=== PATIENT | male | born 1995 | race African-American/Black ===

== ENCOUNTER 2017-05-04 17:38 | Inpatient (IN) | payer OTHER, MEDICAID ==
[~2017-05-04] VITALS: Ht 175.3 cm; Wt 61.2 kg
[2017-05-04] MEDS ORDERED: ZOLPIDEM TARTRATE 10 MG TABLET PO PRN (21:15)
[2017-05-04] MEDS ORDERED: ALBU8HFA IH (21:15)
[2017-05-04 21:25] VITALS: BP 138/81
[2017-05-04 21:38] VITALS: BP 144/88
[2017-05-04] MEDS ORDERED: PNEUMOCOCCAL VACCINE POLYVALENT 0.5 ML VIAL [PPSV23] IM ONE (22:15)
[2017-05-04] MEDS: LORazepam 2 MG TABLET PO PRN (22:16)
[2017-05-05 06:47] VITALS: BP 134/88
[2017-05-05 07:19] LABS: BASOPHILS % (AUTO) 0.6 % (0.0-2.0); EOSINOPHILS % (AUTO) 2.4 % (1.0-6.0); HEMATOCRIT 46.1 % (41-53); HEMOGLOBIN 15.7 g/dL (13.5-17.5); LYMPHOCYTES # (AUTO) 2.4 K/uL (1.0-4.8); LYMPHOCYTES % (AUTO) 36.6 % (22.0-44.0); MEAN CORPUSCULAR HEMOGLOBIN 31.5 pg (26.0-34.0); MEAN CORPUSCULAR VOLUME 93 fL (80-100); MONOCYTES # (AUTO) 0.5 K/uL (0.1-1.0); MONOCYTES % (AUTO) 7.5 % (2.0-9.0); NEUTROPHILS # (AUTO) 3.4 K/uL (1.8-7.7); NEUTROPHILS % (AUTO) 52.9 % (40.0-70.0); PLATELET COUNT (AUTO) 203 K/uL (150-450); RED BLOOD CELL COUNT(AUTO) 4.98 MIL/uL (4.50-5.90); RED CELL DISTRIBUTION WIDTH 13.8 % (11.5-14.5)
[2017-05-05 07:55] LABS: ALANINE AMINOTRANSFERASE 25 U/L (12-78); ALBUMIN 4.3 g/dL (3.4-5.0); ALKALINE PHOSPHATASE 87 U/L (46-116); ANION GAP 11 mmol/L (8-16); ASPARTATE AMINOTRANSFERASE 33 U/L (15-37); BILIRUBIN,TOTAL 0.7 mg/dL (0.1-1.0); CALCIUM, TOTAL 9.5 mg/dL (8.8-10.5); CARBON DIOXIDE 26 mmol/L (22-29); CHLORIDE 103 mmol/L (98-107); CREATININE 0.97 mg/dL (0.60-1.30); GLOMERULAR FILTR. RATE CALC > 60 mL/min (>60); GLUCOSE,RANDOM 87 mg/dL (70-110); POTASSIUM 3.9 mmol/L (3.5-5.1); SODIUM SERUM 140 mmol/L (136-145); TOTAL PROTEIN, SERUM 7.9 g/dL (6.4-8.2); UREA NITROGEN, BLOOD 8 mg/dL (7-18)
[2017-05-05 08:17] VITALS: BP 139/84
[2017-05-05] MEDS ORDERED: MAGNESIUM HYDROXIDE SUSPENSION 30 ML UDCUP PO PRN (09:15)
[2017-05-05] MEDS ORDERED: PETROLATUM,WHITE 71 GM JELLY TP PRN (09:15)
[2017-05-05] MEDS ORDERED: ACETAMINOPHEN 325 MG TABLET PO PRN (09:15)
[2017-05-05] MEDS ORDERED: ONDANSETRON HCL 4 MG TABLET PO PRN (09:15)
[2017-05-05] MEDS ORDERED: IBUPROFEN 600 MG TABLET PO PRN (09:15)
[2017-05-05] MEDS ORDERED: MAG HYDROX/AL HYDROX/SIMETH ES 30 ML SUSPENSION UDCUP PO PRN (09:15)
[2017-05-05] MEDS ORDERED: LOPERAMIDE HCL 2 MG CAPSULE PO PRN (09:15)
[2017-05-05] MEDS ORDERED: BACITRACIN 28.4 GM OINTMENT TP PRN (09:15)
[2017-05-05] MEDS ORDERED: ALBUTEROL SULFATE HFA 90 MCG/PUFF 8 GM INHALER IH PRN (09:15)
[2017-05-05] MEDS ORDERED: CloNIDine HCL 0.1 MG TABLET PO PRN (09:15)
[2017-05-05] MEDS: RisperiDONE 0.5 MG TABLET PO SCH ×2 (09:51→20:38)
[2017-05-05 16:00] VITALS: BP 130/84
[2017-05-05] MEDS: LORazepam 2 MG TABLET PO PRN (16:26)
[2017-05-05] MEDS: HALOPERIDOL 5 MG TABLET PO PRN (16:26)
[2017-05-06 05:08] VITALS: BP 120/80
[2017-05-06 08:00] VITALS: BP 133/79
[2017-05-06] MEDS: RisperiDONE 0.5 MG TABLET PO SCH ×2 (08:24→20:20)
[2017-05-06 16:00] VITALS: BP 124/70
[2017-05-06] MEDS: LORazepam 2 MG TABLET PO PRN (16:01)
[2017-05-06] MEDS: HALOPERIDOL 5 MG TABLET PO PRN (16:01)
[2017-05-07 05:23] VITALS: BP 126/70
[2017-05-07 08:10] VITALS: BP 132/76
[2017-05-07] MEDS: RisperiDONE 0.5 MG TABLET PO SCH (08:44)
[2017-05-07] MEDS ORDERED: RisperiDONE 0.5 MG TABLET PO ONE (09:45)
[2017-05-07] MEDS ORDERED: RISP1 PO (15:32)
[2017-05-07] MEDS ORDERED: RisperiDONE 0.5 MG TABLET PO SCH (21:00)
== END 2017-05-07 16:55 | DRG 885 ==
LOC: B3A 21:16 → EDSTATUS 21:36
DX: F20.0 Paranoid schizophrenia (principal); F12.90 Cannabis use, unspecified, uncomplicated; F41.9 Anxiety disorder, unspecified; J45.909 Unspecified asthma, uncomplicated; Z91.012 Allergy to eggs; Z91.013 Allergy to seafood; G47.00 Insomnia, unspecified; Z23 Encounter for immunization
CPT/HCPCS: 87081; 90471

== ENCOUNTER 2022-02-19 00:33 | Emergency (ER) | payer MEDICAID, OTHER ==
[~2022-02-19] VITALS: Ht 175.3 cm; Wt 88.6 kg
[~2022-02-19 00:33] MED LIST: RISP1TAB48 PO
[2022-02-19] MEDS ORDERED: DOXYCYCLINE HYCLATE 100 MG TABLET PO ONE (01:45)
[2022-02-19 03:00] VITALS: BP 133/74
== END 2022-02-19 06:30 | disposition home or self-care (01) ==
LOC: EMS 00:34
DX: R21 Rash and other nonspecific skin eruption (principal); J45.909 Unspecified asthma, uncomplicated; F31.9 Bipolar disorder, unspecified; F20.9 Schizophrenia, unspecified; F41.9 Anxiety disorder, unspecified; Z91.012 Allergy to eggs; Z91.010 Allergy to peanuts; Z91.013 Allergy to seafood
CPT/HCPCS: 99283

== ENCOUNTER 2022-06-08 15:33 | Emergency (ER) | payer OTHER ==
[~2022-06-08] VITALS: Ht 175.3 cm; Wt 85.0 kg
[2022-06-08] MEDS ORDERED: BUSP15 PO (15:58)
[2022-06-08 16:39] VITALS: BP 113/64
[2022-06-08] MEDS ORDERED: LIDOCAINE/PF 1% 2 ML VIAL IM ONE ×2 (17:00)
[2022-06-08] MEDS ORDERED: AZITHROMYCIN 500 MG TABLET PO ONE (17:00)
[2022-06-08] MEDS ORDERED: CefTRIAXone SODIUM 1 GM/VIAL IM ONE (17:00)
[2022-06-08 18:15] LABS: APPEARANCE,URINE HAZY (CLEAR); BILIRUBIN,URINE NEGATIVE (NEGATIVE); GLUCOSE, URINE (UA) NEGATIVE (NEGATIVE); KETONES,URINE NEGATIVE (NEGATIVE); LEUKOCYTE ESTERASE ,URINE LARGE (NEGATIVE); NITRATE,URINE NEGATIVE (NEGATIVE); OCCULT BLOOD,URINE SMALL (NEGATIVE); PROTEIN,URINE 30-70 mg/dL (NEGATIVE); SPECIFIC GRAVITIY, URINE 1.032 (1.003-1.030)
[2022-06-08 18:31] LABS: BACTERIA,URINE Few /HPF (None Seen); WBC,URINE 51-100 /HPF (0-5)
== END 2022-06-08 17:41 | disposition home or self-care (01) ==
LOC: EMS 15:39
DX: A64 Unspecified sexually transmitted disease (principal); F41.9 Anxiety disorder, unspecified; J45.909 Unspecified asthma, uncomplicated; F31.9 Bipolar disorder, unspecified; F20.9 Schizophrenia, unspecified; F12.90 Cannabis use, unspecified, uncomplicated; F17.210 Nicotine dependence, cigarettes, uncomplicated; R73.03 Prediabetes; Z91.010 Allergy to peanuts; Z91.012 Allergy to eggs; Z91.013 Allergy to seafood
CPT/HCPCS: 99283; 81001; 87086; 87186; 87491; 87591; 96372; J0696; J3490; Q9967

== ENCOUNTER 2022-07-28 13:36 | Emergency (ER) | payer OTHER ==
[~2022-07-28] VITALS: Ht 172.7 cm; Wt 88.6 kg
[~2022-07-28 13:36] MED LIST changes: +BUSP15 PO; -RISP1TAB48 PO
[2022-07-28 13:52] VITALS: BP 116/59
[2022-07-28 13:54] LABS: COVID AG,FIA SOURCE NASOPHARYNGEAL
[2022-07-28 14:14] LABS: INFLUENZA TYPE A NEGATIVE FOR TYPE A (NEGATIVE); INFLUENZA TYPE B NEGATIVE FOR TYPE B (NEGATIVE)
[2022-07-28] MEDS ORDERED: ACET-66 PO (15:24)
[2022-07-28] MEDS ORDERED: GUAIFDM PO (15:24)
[2022-07-28] MEDS ORDERED: IBUP-1554 PO (15:24)
== END 2022-07-28 15:37 | disposition home or self-care (01) ==
LOC: EMS 13:38
DX: J06.9 Acute upper respiratory infection, unspecified (principal); U07.1 COVID-19; F41.9 Anxiety disorder, unspecified; J45.909 Unspecified asthma, uncomplicated; F31.9 Bipolar disorder, unspecified; F20.9 Schizophrenia, unspecified; F17.210 Nicotine dependence, cigarettes, uncomplicated; F12.90 Cannabis use, unspecified, uncomplicated; R73.03 Prediabetes
CPT/HCPCS: 87804; 99283

== ENCOUNTER 2022-08-10 18:12 | Inpatient (IN) | payer MEDICAID, OTHER ==
[~2022-08-10] VITALS: Ht 175.3 cm; Wt 81.5 kg
[~2022-08-10 18:12] MED LIST changes: +ACET-66 PO; +GUAIFDM PO; +IBUP-1554 PO
[2022-08-10] MEDS ORDERED: LORazepam 1 MG TABLET PO ONE (21:00)
[2022-08-10 21:23] LABS: BASOPHILS % (AUTO) 1.2 % (0.0-2.0); EOSINOPHILS % (AUTO) 2.9 % (1.0-6.0); HEMATOCRIT 45.5 % (41-53); HEMOGLOBIN 14.9 g/dL (13.5-17.5); LYMPHOCYTES # (AUTO) 1.8 K/uL (1.0-4.8); LYMPHOCYTES % (AUTO) 23.4 % (22.0-44.0); MEAN CORPUSCULAR HGB CONC 32.8 G/dL (31.0-37.0); MEAN CORPUSCULAR VOLUME 95 fL (80-100); MONOCYTES # (AUTO) 0.7 K/uL (0.1-1.0); MONOCYTES % (AUTO) 9.9 % (2.0-9.0); NEUTROPHILS # (AUTO) 4.7 K/uL (1.8-7.7); NEUTROPHILS % (AUTO) 62.6 % (40.0-70.0); PLATELET COUNT (AUTO) 266 K/uL (150-450); RED BLOOD CELL COUNT(AUTO) 4.81 MIL/uL (4.50-5.90); RED CELL DISTRIBUTION WIDTH 12.6 % (11.5-14.5)
[2022-08-10 21:28] LABS: COVID AG,FIA SOURCE NASOPHARYNGEAL
[2022-08-10 21:37] LABS: CARBON DIOXIDE 25 mmol/L (22-29); CHLORIDE 107 mmol/L (98-107); POTASSIUM 3.9 mmol/L (3.5-5.1); SODIUM SERUM 143 mmol/L (136-145)
[2022-08-10 21:38] LABS: ANION GAP 11 mmol/L (8-16); CALCIUM, TOTAL 8.9 mg/dL (8.8-10.5); GLOMERULAR FILTR. RATE CALC > 60 mL/min (>60); GLUCOSE,RANDOM 81 mg/dL (70-110); UREA NITROGEN, BLOOD 12 mg/dL (7-18)
[2022-08-10 21:43] LABS: ALANINE AMINOTRANSFERASE 21 U/L (12-78); ALBUMIN 3.9 g/dL (3.4-5.0); ALKALINE PHOSPHATASE 78 U/L (46-116); ASPARTATE AMINOTRANSFERASE 19 U/L (15-37); BILIRUBIN,TOTAL 0.3 mg/dL (0.1-1.0); TOTAL PROTEIN, SERUM 7.4 g/dL (6.4-8.2)
[2022-08-10] MEDS ORDERED: ZOLPIDEM TARTRATE 10 MG TABLET PO PRN (22:00)
[2022-08-10] MEDS ORDERED: HALOPERIDOL 5 MG TABLET PO PRN (22:00)
[2022-08-10] MEDS ORDERED: LORazepam 2 MG TABLET PO PRN (22:00)
[2022-08-11 00:27] VITALS: BP 108/68
[2022-08-11 00:35] VITALS: BP 108/68
[2022-08-11] MEDS ORDERED: GuaiFENesin/D-METHORPHAN [SUGAR-FREE] 200-20MG/10 ML SYRUP UDCUP PO PRN (06:15)
[2022-08-11] MEDS ORDERED: IBUPROFEN 600 MG TABLET PO PRN (06:15)
[2022-08-11 08:00] VITALS: BP 122/61
[2022-08-11 08:12] VITALS: BP 122/60
[2022-08-11] MEDS: NALTREXONE HCL 50 MG TABLET PO SCH (11:09)
[2022-08-11] MEDS: ARIPiprazole 15 MG TABLET PO SCH (11:09)
[2022-08-11] MEDS: BusPIRone HCL 15 MG TABLET PO SCH (11:10)
[2022-08-11 16:22] VITALS: BP 132/81
[2022-08-11 21:00] VITALS: BP 128/77
[2022-08-12] MEDS: ARIPiprazole 15 MG TABLET PO SCH (08:44)
[2022-08-12] MEDS: BusPIRone HCL 15 MG TABLET PO SCH (08:44)
[2022-08-12] MEDS: NALTREXONE HCL 50 MG TABLET PO SCH (08:44)
[2022-08-12 10:28] VITALS: BP 122/69
[2022-08-12 21:00] VITALS: BP 102/57
[2022-08-13] MEDS: BusPIRone HCL 15 MG TABLET PO SCH (08:40)
[2022-08-13] MEDS: NALTREXONE HCL 50 MG TABLET PO SCH (08:40)
[2022-08-13] MEDS: ARIPiprazole 15 MG TABLET PO SCH (08:40)
[2022-08-13 09:12] VITALS: BP 103/60
[2022-08-13] MEDS ORDERED: NALT50TA6 PO (09:24)
[2022-08-13] MEDS ORDERED: ARIP15TA27 PO ×2 (09:24→09:42)
[2022-08-13] MEDS ORDERED: NALT50TA PO (09:42)
[2022-08-13] MEDS ORDERED: BUSP15 PO (09:42)
== END 2022-08-13 13:23 | disposition home or self-care (01) | DRG 750 ==
LOC: EMS 18:12 → 3EI 22:23
PROVIDERS: ADMIT Psychiatry & Neurology Psychiatry; ATTEND Psychiatry & Neurology Psychiatry
DX: F25.1 Schizoaffective disorder, depressive type (principal); R45.851 Suicidal ideations; F31.9 Bipolar disorder, unspecified; J45.909 Unspecified asthma, uncomplicated; F41.9 Anxiety disorder, unspecified; Z20.822 Contact with and (suspected) exposure to COVID-19; G47.00 Insomnia, unspecified; Z87.891 Personal history of nicotine dependence; Z91.010 Allergy to peanuts; Z79.899 Other long term (current) drug therapy; Z91.012 Allergy to eggs; Z91.013 Allergy to seafood
CPT/HCPCS: 80053; 85025; 99285; G0480